=== PATIENT | female | born 1955 | race Caucasian/White ===

== ENCOUNTER 2020-02-01 13:05 | Emergency (ER) | payer MEDICARE, OTHER ==
--- NOTE | 2020-02-01 14:06 | EDM.PDOC ---
ED HPI GENERAL MEDICAL PROBLEM - General Chief Complaint: Syncope Stated Complaint: FELL AND HIT HER HEAD. Time Seen by Provider: 02/01/20 13:35 Source of Information: Reports: Patient, Family, RN, RN Notes Reviewed History Limitations: Reports: No Limitations - History of Present Illness INITIAL COMMENTS - FREE TEXT/NARRATIVE: Patient presents to the ED via personal vehicle with for complaints of multiple falls with possible syncope. The patient states her first fall was last night 01/31/20 at approximately 2200. She states she had three glasses of wine of last night, but did not "feel drunk." She denied any LOC, weakness, speech changes, or visual changes following this fall, and states she felt just fine. Her second fall occurred this morning 02/01/20 at approximately 0600 when she got up to urinate. She noted she felt dizzy while standing at the sink and went to go lay down. She states, "I thought I went to lay down, but I woke up on the floor with my staring over me." She is unsure if she hit her head. She denies any weakness, visual changes, or speech changes following this fall. She does report moderate muscular soreness from both falls. She denies cough, shortness of breath, palpitations, diarrhea, dysuria, hematuria, blood in stool, or changes in bowel/bladder patterns. She does note nausea and dizziness. She attests to a history of MS, and vestibular imbalance. - Related Data Allergies Allergy/AdvReac Type Severity Reaction Status Date / Time No Known Allergies Allergy Verified 02/01/20 13:25 Home Meds: Home Meds Levothyroxine [Synthroid] 50 mcg PO ACBREAKFAST 02/01/20 [History] hydroCHLOROthiazide [Hydrochlorothiazide] 25 mg PO DAILY 02/01/20 [History] Past Medical History HEENT History: Reports: Cataract Cardiovascular History: Reports: Hypertension Respiratory History: Reports: None Gastrointestinal History: Reports: None Genitourinary History: Reports: None [employer] History: Reports: None Musculoskeletal History: Reports: None Neurological History: Reports: Other (See Below) Other Neuro History: vestibular imbalance, MS Psychiatric History: Reports: None Endocrine/Metabolic History: Reports: Hypothyroidism Hematologic History: Reports: None Immunologic History: Reports: None Oncologic (Cancer) History: Reports: None Dermatologic History: Reports: None - Infectious Disease History Infectious Disease History: Reports: None - Past Surgical History Head Surgeries/Procedures: Reports: None Social & Family History - Family History Family Medical History: Noncontributory - Tobacco Use Smoking Status *Q: Former Smoker Used Tobacco, but Quit: Yes Month/Year Tobacco Last Used: 1989 - Caffeine Use Caffeine Use: Reports: Coffee - Alcohol Use Days Per Week of Alcohol Use: 7 Number of Drinks Per Day: 3 Total Drinks Per Week: 21 - Recreational Drug Use Recreational Drug Use: No ED ROS GENERAL - Review of Systems Review Of Systems: Comprehensive ROS is negative, except as noted in HPI. ED EXAM, GENERAL - Physical Exam Exam: See Below Exam Limited By: No Limitations General Appearance: Alert, WD/WN, No Apparent Distress Ears: Normal External Exam, Hearing Grossly Normal Nose: Normal Inspection, No Blood Throat/Mouth: Normal Inspection, Normal Voice, No Airway Compromise Head: Atraumatic, Normocephalic Neck: Normal Inspection, Supple, Non-Tender, Full Range of Motion Respiratory/Chest: No Respiratory Distress, Lungs Clear, Normal Breath Sounds, No Accessory Muscle Use, Chest Non-Tender Cardiovascular: Normal Peripheral Pulses, Regular Rate, Rhythm, No Edema, No Gallop, No JVD, No Murmur, No Rub GI/Abdominal: Normal Bowel Sounds, Soft, Non-Tender, No Distention, No Mass Back Exam: Normal Inspection, Other (Soreness from fall) Extremities: Normal Inspection, Arm Pain (To bilateral elbows), Leg Pain (To left hip) Neurological: Alert, Oriented, CN II-XII Intact Skin Exam: Warm, Dry, Intact, Normal Color, No Rash EKG INTERPRETATION EKG Date: 02/01/20 Time: 13:56 Rhythm: NSR Rate (Beats/Min): 68 [place]: Other (LAFB) P-Wave: Present QRS: Normal ST-T: Normal QT: Normal Comparison: NA - No Prior EKG (No ischemic changes; LAFB) Course - Vital Signs Last Recorded V/S: Last Vital Signs Temp 98.2 F 02/01/20 13:26 Pulse 76 02/01/20 13:26 Resp 16 02/01/20 13:26 BP 154/81 H 02/01/20 13:26 Pulse Ox 99 02/01/20 13:26 Orthostatic Blood Pressure [ 131/79 Standing] Orthostatic Blood Pressure [ 140/77 Sitting] Orthostatic Blood Pressure [ 148/75 Supine] - Orders/Labs/Meds Orders: Active Orders 24 hr Category Date Time Status EKG Documentation Completion [RC] STAT Care 02/01/20 13:45 Active Orthostatic Vital Signs [RC] ASDIRECTED Care 02/01/20 13:41 Active Labs: Laboratory Tests 02/01/20 02/01/20 02/01/20 Range/Units 14:02 14:02 15:25 WBC 11.7 H (5.0-10.0) 10^3/uL RBC 4.25 (4.2-5.4) 10^6/uL Hgb 13.6 (12.0-16.0) g/dL Hct 38.7 (37.0-47.0) % MCV 91.1 (80-100) fL MCH 32.0 (27.0-34.0) pg MCHC 35.1 H (33.0-35.0) g/dL Plt Count 200 (150-450) 10^3/uL Neut % (Auto) 51.8 (42.2-75.2) % Lymph % (Auto) 40.8 (20.5-50.1) % [place] % (Auto) 7.0 (2-8) % Eos % (Auto) 0.2 L (1.0-3.0) % Baso % (Auto) 0.2 (0.0-1.0) % Sodium 130 L (136-145) mmol/L Potassium 4.3 (3.5-5.1) mmol/L Chloride 94 L (98-107) mmol/L Carbon Dioxide 29 (21-32) mmol/L Anion Gap 11.3 (7-13) mEq/L BUN 13 (7-18) mg/dL Creatinine 0.67 (0.55-1.02) mg/dL Est Cr Clr Drug Dosing 71.32 mL/min Estimated GFR (MDRD) > 60 BUN/Creatinine Ratio 19.4 (No establ ref range) Glucose 102 H (74-99) mg/dL Calcium 9.0 (8.5-10.1) mg/dL Total Bilirubin 0.7 (0.2-1.0) mg/dL AST 26 (15-37) U/L ALT 27 (14-59) U/L Alkaline Phosphatase 40 L (46-116) U/L Total Protein 6.7 (6.4-8.2) g/dL Albumin 3.9 (3.4-5.0) g/dL Globulin 2.8 Albumin/Globulin Ratio 1.4 TSH, Ultra Sensitive 1.03 (0.36-3.74) uIU/mL Urine Color Yellow (YELLOW) Urine Appearance Slightly cloudy (CLEAR) Urine pH 8.5 (5.0-9.0) Ur Specific [place] 1.020 (1.005-1.030) Urine Protein Trace H (NEGATIVE) Urine Glucose (UA) Negative (NEGATIVE) Urine Ketones Negative (NEGATIVE) Urine Occult Blood Negative (NEGATIVE) Urine Nitrite Negative (NEGATIVE) Urine Bilirubin Negative (NEGATIVE) Urine Urobilinogen 0.2 (0.2-1.0) mg/dL Ur Leukocyte Esterase Negative (NEGATIVE) Urine RBC 0-5 /HPF Urine WBC 0-5 (0-5/HPF) /HPF Ur Epithelial Cells Rare (NOT SEEN) /HPF Amorphous Sediment Rare (NOT SEEN) /HPF Urine Bacteria Rare (0-FEW/HPF) /HPF Urine Mucus Few H (NOT SEEN) /LPF - Radiology Interpretation Free Text/Narrative:: [facility] Final Radiology Report Call: [phone] assistance Online chat: [email or web address] Name: SASHA RIDER Age: 64Years F Date: 02/01/2020 SSN: -- : 1955 Study: CT HEAD WO CONT Requesting Physician: Vee Go Images: 146 Addl Studies: Provided Clinical History: Syncope Contrast: Without Contrast Medium: Contrast Amount: Contrast Method: Page 1 of 2 PROCEDURE INFORMATION: Exam: CT Head Without Contrast Exam date and time: 02/01/2020 2:17 PM Age: 64 years old Clinical indication: Other: Syncope TECHNIQUE: Imaging protocol: Computed tomography of the head without contrast. Radiation optimization: All CT scans at this facility use at least one of these dose optimization techniques: automated exposure control; mA and/or kV adjustment per patient size (includes targeted exams where dose is matched to clinical indication); or iterative reconstruction. COMPARISON: No relevant prior studies available. FINDINGS: Brain: Mild diffuse brain voume loss. Proportionate expansion of the CSF containing spaces. Similar, bilateral periventricular and supratentorial subcortical white matter hypoattenuation. No focal encephalomalacia. Normal brainstem and cerebellum. No mass, brain edema or intracranial hemorrhage. No transcortical defect. Cerebral ventricles: No ventriculomegaly. Bones/joints: Normal. Paranasal sinuses: Visualized sinuses are unremarkable. No fluid levels. Mastoid air cells: Normal. Vasculature: Bilateral carotid atherosclerosis. Soft tissues: Unremarkable. IMPRESSION: 1. No acute intracranial abnormality. 2. Atherosclerosis and typical stigmata of chronic ischemic white matter microangiopathy. SASHA RIDER | Final Radiology Report CONFIDENTIALITY STATEMENT This report is intended only for use by the referring physician, and only in accordance with law. If you received this in error, call [phone]. Page 2 of 2 Thank you for allowing us to participate in the care of your patient. Dictated and Authenticated by: Сергей Ahuja MD 02/01/2020 2:39 PM Central Time ([place] & [place]) - Re-Assessments/Exams Free Text/Narrative Re-Assessment/Exam: 02/01/20 15:41 EKG, CT head unremarkable. Orthostatic vitals WNL. CBC and UA unremarkable. CMP revealed Na of 130 - patient instructed to eat high-salt fluids and follow up with PCP early next week. 02/01/20 15:47 Departure - Departure Time of Disposition: 15:47 Disposition: Refer to Observation Condition: Good Clinical Impression: Hyponatremia, Pre-syncope Fall Qualifiers: Encounter type: initial encounter Qualified Code(s): W19.XXXA - Unspecified fall, initial encounter - Discharge Information *PRESCRIPTION DRUG MONITORING PROGRAM REVIEWED*: Not Applicable *COPY OF PRESCRIPTION DRUG MONITORING REPORT IN PATIENT TONYA: Not Applicable Instructions: Syncope, [id number] Forms: ED Department Discharge Additional Instructions: Sodium slightly low at 130. Eat foods high in salt and follow up with primary care provider early next week. Sepsis Event Note (ED) - Evaluation Sepsis Screening Result: No Definite Risk - Focused Exam Vital Signs: Vital Signs Temp Pulse Resp BP Pulse Ox 02/01/20 13:26 98.2 F 76 16 154/81 H 99 - My Orders Last 24 Hours: My Active Orders 02/01/20 13:41 Orthostatic Vital Signs [RC] ASDIRECTED 02/01/20 13:45 EKG Documentation Completion [RC] STAT - Assessment/Plan Last 24 Hours: My Active Orders 02/01/20 13:41 Orthostatic Vital Signs [RC] ASDIRECTED 02/01/20 13:45 EKG Documentation Completion [RC] STAT
[2020-02-01 14:35] LABS: ANION GAP 11.3 mEq/L (7-13); CHLORIDE,CL 94 mmol/L (98-107); SODIUM,NA 130 mmol/L (136-145)
--- NOTE | 2020-02-01 14:39 | CT ---
PROCEDURE INFORMATION: Exam: CT Head Without Contrast Exam date and time: 02/01/2020 2:17 PM Age: 64 years old Clinical indication: Other: Syncope TECHNIQUE: Imaging protocol: Computed tomography of the head without contrast. Radiation optimization: All CT scans at this facility use at least one of these dose optimization techniques: automated exposure control; mA and/or kV adjustment per patient size (includes targeted exams where dose is matched to clinical indication); or iterative reconstruction. COMPARISON: No relevant prior studies available. FINDINGS: Brain: Mild diffuse brain voume loss. Proportionate expansion of the CSF containing spaces. Similar, bilateral periventricular and supratentorial subcortical white matter hypoattenuation. No focal encephalomalacia. Normal brainstem and cerebellum. No mass, brain edema or intracranial hemorrhage. No transcortical defect. Cerebral ventricles: No ventriculomegaly. Bones/joints: Normal. Paranasal sinuses: Visualized sinuses are unremarkable. No fluid levels. Mastoid air cells: Normal. Vasculature: Bilateral carotid atherosclerosis. Soft tissues: Unremarkable. IMPRESSION: 1. No acute intracranial abnormality. 2. Atherosclerosis and typical stigmata of chronic ischemic white matter microangiopathy.
== END 2020-02-01 15:49 | disposition other institution (70) ==
LOC: DL.ED 13:05
DX: R55 Syncope and collapse (principal); M25.552 Pain in left hip; M25.522 Pain in left elbow; M25.521 Pain in right elbow; E87.1 Hypo-osmolality and hyponatremia; I10 Essential (primary) hypertension; E03.9 Hypothyroidism, unspecified; Z79.899 Other long term (current) drug therapy; Z87.891 Personal history of nicotine dependence; W19.XXXA Unspecified fall, initial encounter
CPT/HCPCS: 36415; 70450; 80053; 81001; 84443; 85025; 93005; 99285-25

== ENCOUNTER 2022-07-09 14:52 | Emergency (ER) | payer BC, MEDICARE ==
[2022-07-09 15:51] LABS: ANION GAP 11.7 mEq/L (7-13); CHLORIDE,CL 103 mmol/L (98-107); ESTIMATED GFR 60 mL/min (>=60); SODIUM,NA 140 mmol/L (136-145)
== END 2022-07-09 16:17 | disposition home or self-care (01) ==
LOC: DL.ED 14:52
DX: G44.209 Tension-type headache, unspecified, not intractable (principal); I10 Essential (primary) hypertension; E03.9 Hypothyroidism, unspecified; Z79.899 Other long term (current) drug therapy
CPT/HCPCS: 36415; 70450; 80053; 83605; 84484; 85025; 86140; 93005; 93010; 99284